=== PATIENT | male | born 1960 | race Caucasian/White ===

== ENCOUNTER 2021-01-11 00:06 | Outpatient (CLI) | payer MEDICAID, SELFPAY ==
--- NOTE | 2021-01-11 08:19 | DI.CTLCSR_ITS ---
EXAM: CT CHEST LUNG CANCER SCREEN CLINICAL HISTORY: SCREENING FOR LUNG CA, CURRENT SMOKER, F17.210. TECHNIQUE: Imaging Protocol: Low Dose Technique CONTRAST MATERIAL: None COMPARISON: No exams were available for comparison FINDINGS: CHEST: LUNGS: There are mild benign-appearing increased markings in the right middle lobe. There are subple ural calcified granulomas in the right lower lobe.. There is a 2 millimeter subpleural noncalcified nodule in the lateral basal segment of the left lower lobe. No spiculated lung lesions. No pleural effusions.. No pleural effusions. No significant focal findings evident in the trachea and mainstem bronchi MEDIASTINUM: There are multiple small lymph nodes in the mediastinal fat, the largest of these measur ing 11 by 6 millimeters. There is no obvious hilar adenopathy with the exception of a few small calc ified lymph nodes in the right hilum. Slightly prominent lymph nodes subcarinal region. There is no significant axillary adenopathy. CARDIAC: Heart size is normal. There is no pericardial effusion.Coronary artery calcification noted. Caliber thoracic aorta is within normal limits. OTHER: OSSEOUS: No significant osseous lesions.There is a healed fracture of the left 7th rib. IMPRESSION: 1. Benign-appearing lung nodules as described above. There are no pleural effusions. 2. Multiple slightly prominent noncalcified lymph nodes in the mediastinum. This is in addition to s mall calcified lymph nodes in the right hilum which are commensurate with the calcified granulomas in the right lung. 3. Lung RADS Cat 2 - Benign Appearance / Behavior: Nodules with a very low likelihood of becoming a c linically active cancer due to size or lack of growth RADIATION DOSE DELIVERED: 85.16mGy.cm Total DLP DATA REPOSITORY: All CT scans at this facility are submitted to the National Radiology Data Registry (NRDR) Dose Index Registry (DIR) with the [employer] ([employer]). RADIATION OPTIMIZATION: All CT scans at this facility use at least one of these dose optimization te chniques: automated exposure control; mA and/or kV adjustment per patient size (includes targeted exa ms where dose is matched to clinical indication); or iterative reconstruction.
== END 2021-01-11 00:07 ==
LOC: DI 00:06
PROVIDERS: PCP Nurse Practitioner Adult Health; Visit Provider Family Medicine
DX: F17.210 Nicotine dependence, cigarettes, uncomplicated (principal); R91.8 Other nonspecific abnormal finding of lung field; R59.0 Localized enlarged lymph nodes
CPT/HCPCS: 71271

== ENCOUNTER 2023-01-12 00:49 | Outpatient (CLI) | payer MEDICAID, SELFPAY ==
--- NOTE | 2023-01-12 07:51 | DI.CTLCSR_ITS ---
Exam(s) CT CHEST LUNG CANCER SCREEN EXAM: CT CHEST LUNG CANCER SCREEN CLINICAL HISTORY: SCREENING FOR LUNG CA, SMOKER, F17.200. TECHNIQUE: Imaging Protocol: Low Dose Technique CONTRAST MATERIAL: None COMPARISON: CT CT CHEST LUNG CANCER SCREEN from 01/11/2021 FINDINGS: CHEST: LUNGS: There are no new ominous pulmonary nodules. The previously described benign-appearing small bi lateral nodules, some calcified and some not remain unchanged in size and number. No new infiltrates . No pleural effusions. MEDIASTINUM: There is no o new hilar nor new mediastinal adenopathy. CARDIAC: Heart size is normal. There is no pericardial effusion.Caliber of the thoracic aorta is wit hin normal limits. OTHER: No adrenal masses. OSSEOUS: No significant osseous lesions.. IMPRESSION: 1. Stable benign-appearing small bilateral lung nodules. Unchanged from prior study. 2. No new pulmonary findings nor pleural effusions. 3. Lung RADS Cat 2 - Benign Appearance / Behavior: Nodules with a very low likelihood of becoming a c linically active cancer due to size or lack of growth Lung-RADS 1.0 CATEGORIES: Category 0 - Prior chest CT exam(s) being located for comparison. Category 1 - Annual screening in 12 months. No nodules or definitely benign nodules. Category 2 - Annual screening in 12 months. Benign appearance. Nodules with low likelihood of becomin g active cancer. Category 3 - 6-month follow-up. Probably benign. Short-term follow-up suggested. Nodules with low lik elihood of becoming active cancer. Category 4A - 3-month follow-up and CT/PET if >8 mm in size. Suspicious finding. Findings which requi re additional testing. Category 4B - Findings which require additional testing and tissue sampling. Category 4X - Category 3 or 4 nodules with additional features or imaging findings that increases the suspicion of malignancy. Modifier S- Potentially clinically significant findings (non lung cancer) RADIATION DOSE DELIVERED: 78mGy.cm Total DLP DATA REPOSITORY: All CT scans at this facility are submitted to the National Radiology Data Registry (NRDR) Dose Index Registry (DIR) with the [employer] ([employer]). RADIATION OPTIMIZATION: All CT scans at this facility use at least one of these dose optimization te chniques: automated exposure control; mA and/or kV adjustment per patient size (includes targeted exa ms where dose is matched to clinical indication); or iterative reconstruction.
== END 2023-01-12 01:09 ==
LOC: DI 00:49
PROVIDERS: PCP Nurse Practitioner Adult Health; Visit Provider Family Medicine
DX: Z12.2 Encounter for screening for malignant neoplasm of respiratory organs (principal); F17.210 Nicotine dependence, cigarettes, uncomplicated; R91.8 Other nonspecific abnormal finding of lung field
CPT/HCPCS: 71271

== ENCOUNTER 2024-10-31 01:32 | Outpatient (CLI) | payer MEDICAID, SELFPAY ==
--- NOTE | 2024-10-31 | DI.CTLCSR_ITS ---
Exam(s) CT CHEST LUNG CANCER SCREEN EXAM: CT CHEST LUNG CANCER SCREEN CLINICAL HISTORY: Smoker, F17.200 TECHNIQUE: Imaging Protocol: Axial computed tomography images with coronal and sagittal reformatted images were created and reviewed. Lung Computer Aided Detection (CAD) was utilized. COMPARISON: CT CT CHEST LUNG CANCER SCREEN from 01/12/2023 FINDINGS: The examination is limited due to patient motion artifact. Tracheobronchial tree: Patent where visualized. No bronchiectasis. Pulmonary parenchyma: No consolidation or dominant measurable mass. Mild emphysematous changes are pr esent in the lungs. There are calcified granuloma seen in the lungs. Lung Nodules: There are stable nodules in the left lung. The largest is in the right upper lobe and measures in the left upper lobe and measures 5 mm (series 2, image 38). There are stable nodules in the right lung. The largest is seen in the right lower lobe and measures 5 mm (series 2, image 109). Mediastinum and Marina: No dominant adenopathy or fluid collection. The esophagus is unremarkable. Thyroid gland: Unremarkable. Lymph nodes: Unremarkable. Pleura: No effusion or pneumothorax. Heart: The heart is not dilated. Three vessel coronary artery calcification is present. No pericardi al effusion. Aorta: Thoracic aorta non-dilated.Atherosclerotic calcification is present. Upper abdomen: Unremarkable. Soft Tissues: Unremarkable. Bones: Within normal limits. IMPRESSION: 1. No new or suspicious pulmonary nodules are present. 2. Stable calcified and noncalcified pulmonary nodules. Lung RADS Cat 2 - Benign Appearance / Behavior: Nodules with a very low likelihood of becoming a clin ically active cancer due to size or lack of growth Lung-RADS 1.0 CATEGORIES: Category 0 - Prior chest CT exam(s) being located for comparison. Category 1 - Annual screening in 12 months. No nodules or definitely benign nodules. Category 2 - Annual screening in 12 months. Benign appearance. Nodules with low likelihood of becomin g active cancer. Category 3 - 6-month follow-up. Probably benign. Short-term follow-up suggested. Nodules with low lik elihood of becoming active cancer. Category 4A - 3-month follow-up and CT/PET if >8 mm in size. Suspicious finding. Findings which requi re additional testing. Category 4B - Findings which require additional testing and tissue sampling. Suspicious finding. Category 4X - Category 3 or 4 nodules with additional features or imaging findings that increases the suspicion of malignancy. Modifier S- Potentially clinically significant finding. (Non lung cancer) RADIATION DOSE DELIVERED: 31.79mGy.cm Total DLP 31.79mGy.cmTotal DLP DATA REPOSITORY: All CT scans at this facility are submitted to the National Radiology Data Registry (NRDR) Dose Index Registry (DIR) with the [employer] ([employer]). RADIATION OPTIMIZATION: All CT scans at this facility use at least one of these dose optimization te chniques: automated exposure control; mA and/or kV adjustment per patient size (includes targeted exa ms where dose is matched to clinical indication); or iterative reconstruction.
== END 2024-10-31 01:52 ==
LOC: DI 01:32
PROVIDERS: PCP Family Medicine; Visit Provider Family Medicine
DX: Z12.2 Encounter for screening for malignant neoplasm of respiratory organs (principal); F17.210 Nicotine dependence, cigarettes, uncomplicated; R91.8 Other nonspecific abnormal finding of lung field
CPT/HCPCS: 71271

== ENCOUNTER → 2025-04-18 15:07 | Outpatient (BNVA) | payer MEDICARE, MEDICAID, SELFPAY | PROVIDERS: PCP Family Medicine; Referring Provider Family Medicine; Visit Provider Urology | DX: E29.1 Testicular hypofunction (principal) | CPT/HCPCS: 99213 ==

== ENCOUNTER → 2025-08-25 13:01 | Outpatient (BNVA) | payer MEDICARE, MEDICAID, SELFPAY | PROVIDERS: PCP Family Medicine; Referring Provider Family Medicine; Visit Provider Student in an Organized Health Care Education/Training Program | DX: M25.551 Pain in right hip (principal); G89.29 Other chronic pain; Z96.641 Presence of right artificial hip joint; S76.811A Strain of other specified muscles, fascia and tendons at thigh level, right thigh, initial encounter; X58.XXXA Exposure to other specified factors, initial encounter; T84.84XA Pain due to internal orthopedic prosthetic devices, implants and grafts, initial encounter | CPT/HCPCS: 99215 ==

== ENCOUNTER 2025-08-28 04:33 | Outpatient (CLI) | payer MEDICARE, MEDICAID, SELFPAY ==
--- NOTE | 2025-08-28 06:15 | DI.CT_ITS ---
Exam(s) CT LOWER EXTREMITY RT WO EXAM: CT LOWER EXTREMITY RT WO CLINICAL HISTORY: PAIN R HIP, ? LOOSENING prosthetic device,[id number]. TECHNIQUE: Imaging Protocol: Axial computed tomography images with coronal and sagittal reformatted images were created and reviewed. CONTRAST MATERIAL: Intravenous: None COMPARISON: DX XR PELVIS AND HIP 2 VIEWS RIGHT from 03/24/2025 FINDINGS: OSSEOUS: Components of the right hip prosthesis appear well seated. No evidence of obvious loosening. No fractures. No evidence of osteomyelitis. SOFT TISSUES: No abnormal fluid collections nor other focal findings in the soft tissue and muscular planes around the hip. No evidence of hematoma. No significant findings in the adjacent right hemipelvis. Incidentally noted are endovascular stents in the proximal aspect of both common iliac arteries. There is chronic disc space narrowing in the lumbar spine. There is also 1 cm anterolisthesis L4 upon L5. There is unilateral pars defect at this level in addition to facet arthropathy. IMPRESSION: No evidence of fracture and no obvious loosening of the components of the right hip prosthesis. No evidence of osteomyelitis. No significant adjacent soft tissue findings. Common iliac artery kissing endovascular stents are noted as well as veins in the LS spine as described above. RADIATION DOSE DELIVERED: 566.62mGy.cm Total DLP DATA REPOSITORY: All CT scans at this facility are submitted to the National Radiology Data Registry (NRDR) Dose Index Registry (DIR) with the [employer] ([employer]). RADIATION OPTIMIZATION: All CT scans at this facility use at least one of these dose optimization techniques: automated exposure control; mA and/or kV adjustment per patient size (includes targeted exams where dose is matched to clinical indication); or iterative reconstruction.
== END 2025-08-28 04:53 ==
LOC: DI 04:33
PROVIDERS: PCP Family Medicine; Visit Provider Student in an Organized Health Care Education/Training Program
DX: T84.84XA Pain due to internal orthopedic prosthetic devices, implants and grafts, initial encounter (principal); Z96.641 Presence of right artificial hip joint
CPT/HCPCS: 36415; 85652; 73700; 86140

== ENCOUNTER 2025-08-28 08:30 | Outpatient (CLI) | payer MEDICARE, MEDICAID, SELFPAY ==
[2025-08-28 09:01] LABS: ESR 3 mm/hr (0-20)
[2025-08-28 09:31] LABS: C-Reactive Protein 0.86 mg/dL (<or=0.5)
== END 2025-08-28 08:31 | disposition home or self-care (01) ==
LOC: LBO 08:30
PROVIDERS: PCP Family Medicine; Visit Provider Student in an Organized Health Care Education/Training Program
DX: T84.84XA Pain due to internal orthopedic prosthetic devices, implants and grafts, initial encounter (principal)
CPT/HCPCS: 36415; 85652; 86140

== ENCOUNTER → 2025-09-01 12:51 | Outpatient (BNVA) | payer MEDICARE, MEDICAID, SELFPAY | PROVIDERS: PCP Family Medicine; Referring Provider Family Medicine; Visit Provider Student in an Organized Health Care Education/Training Program | DX: M25.551 Pain in right hip (principal); G89.29 Other chronic pain; Z96.641 Presence of right artificial hip joint | CPT/HCPCS: 20611 ==

== ENCOUNTER 2025-09-01 13:45 | Outpatient (REF) | payer MEDICARE, MEDICAID, SELFPAY ==
[2025-09-01 15:34] LABS: Polynuclear Cells 2 %
== END 2025-09-01 13:46 | disposition home or self-care (01) ==
LOC: LBN 13:45
PROVIDERS: PCP Family Medicine; Visit Provider Student in an Organized Health Care Education/Training Program
DX: M25.551 Pain in right hip (principal); G89.29 Other chronic pain; Z96.641 Presence of right artificial hip joint
CPT/HCPCS: 87070; 87205; 89051

== ENCOUNTER → 2025-09-25 15:01 | Outpatient (BNVA) | payer MEDICARE, MEDICAID, SELFPAY | PROVIDERS: PCP Family Medicine; Referring Provider Family Medicine; Visit Provider Student in an Organized Health Care Education/Training Program | DX: M76.11 Psoas tendinitis, right hip (principal); S76.811A Strain of other specified muscles, fascia and tendons at thigh level, right thigh, initial encounter; X50.0XXA Overexertion from strenuous movement or load, initial encounter; Z96.641 Presence of right artificial hip joint | CPT/HCPCS: 20550; 76942; 79642; J1010 ==

== ENCOUNTER → 2025-10-09 14:11 | Outpatient (BNVA) | payer MEDICARE, MEDICAID, SELFPAY | PROVIDERS: PCP Family Medicine; Referring Provider Family Medicine; Visit Provider Urology | DX: E29.1 Testicular hypofunction (principal) | CPT/HCPCS: 99214 ==

== ENCOUNTER 2025-10-09 15:11 | Outpatient (CLI) | payer MEDICARE, MEDICAID, SELFPAY ==
[2025-10-09 15:22] LABS: Abs Immature Grans 0.04 10^3/uL (0.0-0.06); HCT 43.1 % (40.0-50.0); HGB 14.7 g/dL (13.5-17.5); Immature Grans % 0.4 %; MCH 28.7 pg (27.0-33.0); MCHC 34.1 % (32.0-36.0); MCV 84 fL (80-95); MPV 9.5 fL (8.0-11.0); Platelet Count 228 10^3/uL (130-400); RBC 5.12 10^6/uL (4.36-5.78); RDW 13.2 % (11.8-14.1); RDW-SD 40.5 fL; WBC 9.25 10^3/uL (4.4-10.8)
[2025-10-09 18:12] LABS: ALT 10 U/L (10-49); AST 12 U/L (<34); Albumin 4.5 g/dL (3.4-5.0); Alkaline Phosphatase 106 U/L (46-116); Anion Gap 9.2 mmol/L (3-11); BUN 11 mg/dL (9-23); Bilirubin, Total 0.20 mg/dL (0.2-1.2); CO2 24.8 mmol/L (20.0-31.0); Calcium 9.0 mg/dL (8.3-10.6); Chloride 105 mmol/L (98-107); Glucose 244 mg/dL (74-106); Potassium 4.0 mmol/L (3.5-5.1); Sodium 139 mmol/L (136-145); Total Protein 7.0 g/dL (5.7-8.2)
== END 2025-10-09 15:12 | disposition home or self-care (01) ==
LOC: LBO 15:13
PROVIDERS: PCP Family Medicine; Visit Provider Urology
DX: E29.1 Testicular hypofunction (principal)
CPT/HCPCS: 36415; 80053; 84403; 85025

== ENCOUNTER → 2025-11-10 08:04 | Outpatient (BNVA) | payer MEDICARE, MEDICAID, SELFPAY | PROVIDERS: PCP Family Medicine; Referring Provider Family Medicine; Visit Provider Urology | DX: N52.9 Male erectile dysfunction, unspecified (principal) | CPT/HCPCS: 99214 ==